=== PATIENT | male | born 1965 | race Hispanic/Latino ===

== ENCOUNTER 2017-01-14 11:02 | Emergency (ER) | payer SELFPAY ==
[2017-01-14 11:02] VITALS: BMI 31.6
[2017-01-14 11:22] VITALS: RESP 16; TEMP 97.7; O2SAT 97
[2017-01-14] MEDS: Albuterol-Ipratrop 3 mg / 0.5 (3 ml) UD IH SCH ×3 (11:30→11:55)
--- NOTE | 2017-01-14 11:30 | ED PDOC ---
Arrival/HPI - General Historian: Patient - History of Present Illness Time/Duration: > week Symptom Onset: Gradual Symptom Course: Worsening Quality: Tightness Context: Work <Medhat Randolph - Last Filed: 01/14/17 13:14> <ArrontonnyJorge Alberto - Last Filed: 01/16/17 18:40> - General Chief Complaint: Shortness Of Breath Time Seen by Provider: 01/14/17 11:10 - History of Present Illness Narrative History of Present Illness (Text): 01/14/17 11:34 51yo M with no significant PMHx here for evaluation of cough, chest pain, shortness of breath. Patient states that he has had cough for 1 week, productive of white phlegm. He states that he had it for a week and thought it was getting better. 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 He came to the ER for further evaluation. He states that the cough is associated with some chest pain located in the left upper chest and radiates to the left neck. He denies any fevers or chills. Does report a co-worker with similar symptoms last week and multiple other co-workers who have similar complaints currently. He does report smoking about a pack a day for the previous 20+ years. Denies any n/v/d. no abd pain. no headaches. No focal deficits. PMHx: Denies PSHx: Left first finger repair, right knee replacement Social Hx: Current pack a day smoker for 20+ years. Occasional ETOH use. Denies any illicit drug use. 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 [employer] (AgustínXochiltMedhat) Past Medical History - Provider Review Nursing Documentation Reviewed: Yes - Past History Past History: No Previous - Tetanus Immunization Tetanus Immunization: Up to Date - Past Medical History Past Medical History: No Previous - Psychiatric Hx Substance Use: No - Past Surgical History Past Surgical History: No Previous - Surgical History Hx Orthopedic Surgery: Yes (right knee replacement) - Suicidal Assessment Feels Threatened In Home Enviroment: No <Medhat Randolph - Last Filed: 01/14/17 13:14> Family/Social History - Physician Review Nursing Documentation Reviewed: Yes Family/Social History: Unknown Family HX Smoking Status: Heavy Smoker > 10 Cigarettes Daily Hx Alcohol Use: Yes Frequency of alcohol use: Socially Hx Substance Use: No Hx Substance Use Treatment: No <Medhat Randolph - Last Filed: 01/14/17 13:14> Allergies/Home Meds <Medhat Randolph - Last Filed: 01/14/17 13:14> <Jorge Alberto Maldonado P - Last Filed: 01/16/17 18:40> Allergies/Adverse Reactions: Allergies No Known Allergies Allergy (Verified 10/21/13 14:19) Review of Systems - Physician Review All systems were reviewed & negative as marked: Yes - Review of Systems Constitutional: absent: Fevers ENT: absent: Rhinorrhea Respiratory: SOB, Cough, Sputum, Wheezing Cardiovascular: Chest Pain. absent: Edema, Calf Pain Gastrointestinal: absent: Abdominal Pain, Diarrhea, Nausea, Vomiting Genitourinary Male: absent: Dysuria, Frequency Musculoskeletal: absent: Back Pain Neurological: Dizziness. absent: Headache Endocrine: Diaphoresis <Medhat Randolph Last Filed: 01/14/17 13:14> Physical Exam Vital Signs Reviewed: Yes Temperature: Afebrile Blood Pressure: Normal Pulse: Regular Respiratory Rate: Normal Appearance: Positive for: Well-Appearing, Non-Toxic Pain Distress: Mild Mental Status: Positive for: Alert and Oriented X 3 - Systems Exam Head: Present: Atraumatic, Normocephalic Extroacular Muscles: Present: EOMI Mouth: Present: Moist Mucous Membranes Respiratory/Chest: Present: Wheezes, Decreased Breath Sounds, Rhonchi. No: Accessory Muscle Use Cardiovascular: Present: Normal S1, S2. No: Murmurs Abdomen: No: Tenderness, Distention, Peritoneal Signs, Rebound, Guarding Back: Present: Normal Inspection Upper Extremity: Present: Normal Inspection. No: Edema Lower Extremity: Present: Normal Inspection. No: Edema, CALF TENDERNESS Neurological: Present: GCS=15 Skin: Present: Warm, Dry, Normal Color Psychiatric: Present: Alert, Oriented x 3 <Medhat Randolph - Last Filed: 01/14/17 13:14> Medical Decision Making <Medhat Randolph - Last Filed: 01/14/17 13:14> <Jorge Alberto Maldonado P - Last Filed: 01/16/17 18:40> ED Course and Treatment: 01/14/17 11:44 51yo M with productive cough, shortness of breath - CXR - EKG - CBC/CMP/Trop - Duonebs x3 - Solumedrol - Reassess and dispo 01/14/17 13:12 - Reexamined the patient. Breath sounds improved. Still some wheezing with deep inspiration. - CXR reviewed with no active disease noted - Urged patient cessation of tobacco use - Patient requests Nicotine patch. Will give one now. Patient to follow up with his primary care physician SHARAD. Patient understands and agrees with plan. ( Medhat Randolph) Patient Seen With Resident: Patient was seen and evaluated with resident. Came up with plan and treatment together. Productive cough, chest pain with cough, wheezes on exam. long smoking hx. will rx as copd exacerbation. (Jorge Alberto Maldonado) - Lab Interpretations Lab Results: 01/14/17 12:03 01/14/17 12:03 Lab Results 01/14/17 12:03: Sodium 140, Potassium 3.4 L, Chloride 102, Carbon Dioxide 29, Anion Gap 12, BUN 13, Creatinine 1.1, Est GFR ( Amer) > 60, Est GFR (Non- Af Amer) > 60, Random Glucose 106, Calcium 9.0, Total Bilirubin 0.4, AST 29, ALT 30, Alkaline Phosphatase 71, Troponin I < 0.01, Total Protein 7.0, Albumin 4.0, Globulin 3.0, Albumin/Globulin Ratio 1.3 01/14/17 12:03: WBC 5.0, RBC 4.65, Hgb 13.7 L, Hct 39.4 L, MCV 84.7, MCH 29.5, MCHC 34.8, RDW 13.2, Plt Count 240, MPV 9.8, Gran % 50.4, Lymph % (Auto) 36.5 H , [place] % (Auto) 4.8, Eos % (Auto) 7.5 H, Baso % (Auto) 0.8, Gran # 2.54, Lymph # 1.8, [place] # 0.2, Eos # 0.4, Baso # 0.04 - RAD Interpretation Radiology Orders: 01/14/17 11:28 CHEST TWO VIEWS (PA/LAT) [RAD] Stat - Medication Orders Current Medication Orders: Discontinued Medications Albuterol/Ipratropium (Duoneb 3 Mg/0.5 Mg (3 Ml) Ud) 3 ml IH Q15M TL Stop: 01/14/17 12:01 Last Admin: 01/14/17 11:55 Dose: 3 ml Methylprednisolone (Solu-Medrol) 125 mg IVP STAT STA Stop: 01/14/17 11:29 Last Admin: 01/14/17 11:44 Dose: 125 mg Nicotine (Nicoderm Cq) 1 patch TD DAILY STA Stop: 01/14/17 13:26 Last Admin: 01/14/17 13:36 Dose: 1 patch - 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 / has examined the patient and agrees with the treatment plan. <Medhat Randolph - Last Filed: 01/14/17 13:14> - Scribe Statement The provider has reviewed the documentation as recorded by the Scribe <Jorge Alberto Maldonado - Last Filed: 01/16/17 18:40> - Scribe Statement Julius Miguel Provider Scribe Attestation: All medical record entries made by the Scribe were at my direction and personally dictated by me. I have reviewed the chart and agree that the record accurately reflects my personal performance of the history, physical exam, medical decision making, and the department course for this patient. I have also personally directed, reviewed, and agree with the discharge instructions and disposition. (Jorge Alberto Maldonado) Disposition/Present on Arrival - Present on Arrival Any Indicators Present on Arrival: No History of DVT/PE: No History of Uncontrolled Diabetes: No Urinary Catheter: No History of Decub. Ulcer: No History Surgical Site Infection Following: None - Disposition Have Diagnosis and Disposition been Completed?: Yes Disposition Time: 13:16 Patient Plan: Discharge <Medhat Randolph - Last Filed: 01/14/17 13:14> <Jorge Alberto Maldonado - Last Filed: 01/16/17 18:40> - Disposition Diagnosis: Cough, Shortness of breath Disposition: HOME/ ROUTINE Condition: GOOD Discharge Instructions (ExitCare): Emphysema (ED), Cold Symptoms (ED) Additional Instructions: 1. Follow up with your Primary Care Physician within 3 days 2. Immediate Smoking cessation 3. Take antibiotics as directed to completion 4. Take Prednisone as directed 5. Use Albuterol inhaler as needed 6. Return to the ER with any concerning symptoms Prescriptions: Albuterol HFA [Ventolin HFA 90 mcg/actuation (8 g)] 1 puff IH Q6H PRN #1 inhaler PRN Reason: Shortness Of Breath Azithromycin [Z-Nicholas] 250 mg PO DAILY #6 tab Prednisone [Deltasone] 40 mg PO DAILY #10 tablet Referrals: Albaro Scruggs DO [Primary Care Provider] - Follow up with primary Forms: [employer] ([place]), WORK NOTE
[2017-01-14 12:09] LABS: BASO # 0.04 K/mm3 (0.0-2.0); BASO % 0.8 % (0.0-3.0); EOS # 0.4 (0.0-0.7); EOS % 7.5 % (1.5-5.0); GRAN # 2.54 (1.4-6.5); GRAN % 50.4 % (50.0-68.0); HEMOGLOBIN 13.7 g/dL (14.0-18.0); LYMPH # 1.8 (1.2-3.4); LYMPH % 36.5 % (22.0-35.0); MEAN CELL VOLUME 84.7 fl (80.0-105.0); MEAN CORPUSCULAR HEMOGLOBIN 29.5 pg (25.0-35.0); MEAN CORPUSCULAR HGB CONC 34.8 g/dl (31.0-37.0); MEAN PLATELET VOLUME 9.8 fl (7.0-11.0); MONO # 0.2 (0.1-0.6); MONO % 4.8 % (1.0-6.0); PLATELET COUNT 240 10^3/uL (120.0-450.0); RBC 4.65 10^6/uL (3.5-6.1); RED CELL DISTRIBUTION WIDTH 13.2 % (11.5-14.5)
[2017-01-14 12:17] LABS: ALB/GLOB RATIO 1.3 (1.1-1.8); ALT/SGPT 30 U/L (7-56); AST/SGOT 29 U/L (15-59); BLOOD UREA NITROGEN 13 mg/dL (7-21); GFR AFRICAN-AMERICAN > 60; GFR NON-AFRICAN AMERICAN > 60
[2017-01-14 12:29] LABS: TROPONIN I < 0.01 ng/mL
--- NOTE | 2017-01-14 12:40 | RAD ---
HISTORY: chest pain COMPARISON: No prior. TECHNIQUE: Chest PA and lateral FINDINGS: LUNGS: No active pulmonary disease. PLEURA: No significant pleural effusion identified. No pneumothorax apparent. CARDIOVASCULAR: Normal. OSSEOUS STRUCTURES: No significant abnormalities. VISUALIZED UPPER ABDOMEN: Normal. OTHER FINDINGS: None. IMPRESSION: No active disease.
[2017-01-14 13:32] VITALS: BP 110/58; PULSE 90
--- NOTE | 2017-01-15 23:59 | CARD ---
APPROVED REPORT EKG Measurement Heart [id number] <Conclusion> Normal sinus rhythm Normal ECG
== END 2017-01-14 13:45 | disposition home or self-care (01) ==
LOC: ED 11:02
DX: R05 Cough (principal); R06.02 Shortness of breath
CPT/HCPCS: 71020; 80053; 84484; 85025; 93005; 96374; 99284; J2930

== ENCOUNTER 2018-08-06 17:51 | Emergency (ER) | payer BC ==
[2018-08-06 17:54] VITALS: BMI 31.4
[2018-08-06 18:25] VITALS: RESP 18; TEMP 98.1
[2018-08-06 18:37] LABS: ALB/GLOB RATIO 1.6 (1.1-1.8); ALBUMIN 4.4 g/dL (3.0-4.8); ALT/SGPT 28 U/L (7-56); AST/SGOT 29 U/L (17-59); BLOOD UREA NITROGEN 13 mg/dL (7-21); CALCIUM 9.2 mg/dL (8.4-10.5); GFR NON-AFRICAN AMERICAN 58
[2018-08-06] MEDS ORDERED: Sodium Chloride 0.9% 1,000 ML IV STA (18:41)
[2018-08-06 18:48] LABS: B-TYPE NATRIURETIC PEPTIDE 34.8 pg/mL (0-450); TROPONIN I < 0.01 ng/mL
--- NOTE | 2018-08-06 18:48 | ED PDOC ---
Arrival/HPI - General Chief Complaint: Chest Pain Time Seen by Provider: 08/06/18 18:09 Historian: Patient - History of Present Illness Narrative History of Present Illness (Text): 08/06/18 18:41 52 year old male, with no significant past medical history, presents to the ED for evaluation of right sided chest pain since today. Patient reports onset of symptoms at work, worsening with movement of right arm and deep inspiration, prompting him to present to the ED for evaluation. Patient denies any other associated somatic complaints. Patient denies any fevers, chills, headache, dizziness, shortness of breath, dyspnea on exertion, cough, abdominal pain, nausea, vomiting, diarrhea, back pain, neck pain, syncope, leg swelling or any other complaints. Patient admits to smoking 2 packs of cigarettes daily. Patient denies any family history of AL age 50 or less. PMD: Dr. Scruggs Time/Duration: Prior to Arrival Symptom Onset: Gradual Symptom Course: Unchanged Activities at Onset: Light Context: Home Past Medical History - Provider Review Nursing Documentation Reviewed: Yes - Past History Past History: No Previous - Infectious Disease Hx of Infectious Diseases: None - Tetanus Immunization Tetanus Immunization: Up to Date - Past Medical History Past Medical History: No Previous - Psychiatric Hx Depression: No Hx Emotional Abuse: No Hx Physical Abuse: No Hx Substance Use: No - Past Surgical History Past Surgical History: No Previous - Surgical History Hx Orthopedic Surgery: Yes (right knee replacement) - Anesthesia Hx Anesthesia: Yes Hx Anesthesia Reactions: No Hx Malignant Hyperthermia: No - Suicidal Assessment Feels Threatened In Home Enviroment: No Family/Social History - Physician Review Nursing Documentation Reviewed: Yes Family/Social History: Unknown Family HX Smoking Status: Heavy Smoker > 10 Cigarettes Daily Hx Alcohol Use: Yes Hx Substance Use: No Hx Substance Use Treatment: No Allergies/Home Meds Allergies/Adverse Reactions: Allergies No Known Allergies Allergy (Verified 08/06/18 18:00) Home Medications: Home Meds Medication Instructions Recorded Confirmed No Known Home Med 08/06/18 08/06/18 Review of Systems - Physician Review All systems were reviewed & negative as marked: Yes - Review of Systems Constitutional: absent: Fevers Respiratory: absent: SOB, Cough Cardiovascular: Chest Pain Gastrointestinal: absent: Abdominal Pain, Diarrhea, Nausea, Vomiting Genitourinary Male: absent: Dysuria, Urinary Output Changes Musculoskeletal: absent: Back Pain, Neck Pain Skin: absent: Rash Neurological: absent: Headache, Dizziness Psychiatric: absent: Anxiety Physical Exam Vital Signs Reviewed: Yes Vital Signs Temp Pulse Resp BP Pulse Ox 08/06/18 18:15 98.1 F 78 18 124/76 95 Temperature: Afebrile Blood Pressure: Normal Pulse: Regular Respiratory Rate: Normal Appearance: Positive for: Well-Appearing, Non-Toxic, Comfortable Pain Distress: None Mental Status: Positive for: Alert and Oriented X 3 - Systems Exam Head: Present: Atraumatic, Normocephalic Pupils: Present: PERRL Extroacular Muscles: Present: EOMI Conjunctiva: Present: Normal Mouth: Present: Moist Mucous Membranes Neck: Present: Normal Range of Motion Respiratory/Chest: Present: Clear to Auscultation, Good Air Exchange, Tender to Palpation (to right anterior chest wall). No: Respiratory Distress, Accessory Muscle Use Cardiovascular: Present: Regular Rate and Rhythm, Normal S1, S2. No: Murmurs Abdomen: No: Tenderness, Distention, Peritoneal Signs Back: Present: Normal Inspection Upper Extremity: Present: Normal Inspection. No: Cyanosis, Edema Lower Extremity: Present: Normal Inspection. No: Edema Neurological: Present: GCS=15, CN II-XII Intact, Speech Normal Skin: Present: Warm, Dry, Normal Color. No: Rashes Psychiatric: Present: Alert, Oriented x 3, Normal Insight, Normal Concentration Medical Decision Making ED Course and Treatment: 08/06/18 18:45 Impression: 52 year old male presents to the ED for evaluation of chest pain. HEART Score: 2(Low risk) Differential Diagnosis included but are not limited to: -- Musculoskeletal pain -- Costrochondritis --ACS Plan: -- EKG -- Labs -- CXR -- IV fluids -- Toradol -- Urinalysis -- Reassess and disposition Prior Visits: Notes and results from previous visits were reviewed. Progress Notes: 08/06/18 19:47 Labs reviewed with negative troponin, BNP and D-dimer. CXR shows no evidence of cardiomegaly, widened mediastinum or PTX. Patient updated on results and and would like to discuss with his if he would like to stay in the hospital for observation. 08/06/18 20:07 Patient reevaluated and desires to follow up with a commercial lease administrator outpatient. He requests for a commercial lease administrator to be provided. Cardiology follow up provided with oppertunity for questions given and answered. Return protocol given. Patient stable for discharge. - Lab Interpretations Lab Results: Total Bilirubin 0.3 mg/dL (0.2-1.3) 08/06/18 18:21 AST 29 U/L (17-59) 08/06/18 18:21 ALT 28 U/L (7-56) 08/06/18 18:21 Alkaline Phosphatase 68 U/L (38-126) 08/06/18 18:21 Total Protein 7.1 g/dL (5.8-8.3) 08/06/18 18:21 Albumin 4.4 g/dL (3.0-4.8) 08/06/18 18:21 Globulin 2.8 gm/dL 08/06/18 18:21 Albumin/Globulin Ratio 1.6 (1.1-1.8) 08/06/18 18:21 08/06/18 18:21 08/06/18 18:21 Lab Results 08/06/18 18:21: Sodium 138, Potassium 4.2, Chloride 103, Carbon Dioxide 26, Anion Gap 13, BUN 13, Creatinine 1.3, Est GFR ( Amer) > 60, Est GFR (Non- Af Amer) 58, Random Glucose 104, Calcium 9.2, Magnesium 1.8, Total Bilirubin 0.3, AST 29, ALT 28, Alkaline Phosphatase 68, Troponin I < 0.01, NT-Pro-B Natriuret Pep 34.8, Total Protein 7.1, Albumin 4.4, Globulin 2.8, Albumin/Globulin Ratio 1.6 08/06/18 18:21: WBC 6.4, RBC 4.68, Hgb 13.9 L, Hct 41.3 L, MCV 88.2 D, MCH 29.7, MCHC 33.7, RDW 13.5, Plt Count 283, MPV 10.2, Neut % (Auto) 47.0 L, Lymph % (Auto) 42.4 H, [place] % (Auto) 5.6, Eos % (Auto) 4.2, Baso % (Auto) 0.8, Lymph # (Auto) 2.7, [place] # (Auto) 0.4, Eos # (Auto) 0.3, Baso # (Auto) 0.05, Absolute Neuts (auto) 3.03 I have reviewed the lab results: Yes - EKG Interpretation EKG Interpretation (Text): 08/06/18 18:53 EKG reviewed, shows NSR@ 81bpm, no ST elevations, peaked T waves. Interpreted by ED Physician: Yes Type: 12 lead EKG - Medication Orders Current Medication Orders: Sodium Chloride (Sodium Chloride 0.9%) 1,000 mls @ 999 mls/hr IV .Q1H1M STA Stop: 08/06/18 19:41 Discontinued Medications Ketorolac Tromethamine (Toradol) 30 mg IVP STAT STA Stop: 08/06/18 18:40 - Scribe Statement The provider has reviewed the documentation as recorded by the Scribe Yaa Fuchs. All medical record entries made by the Scribe were at my direction and perso frantz dictated by me. I have reviewed the chart and agree that the record accurately reflects my personal performance of the history, physical exam, medical decision making, and the department course for this patient. I have also personally directed, reviewed, and agree with the discharge instructions and disposition. Disposition/Present on Arrival - Present on Arrival Any Indicators Present on Arrival: No History of DVT/PE: No History of Uncontrolled Diabetes: No Urinary Catheter: No History of Decub. Ulcer: No History Surgical Site Infection Following: None - Disposition Have Diagnosis and Disposition been Completed?: Yes Diagnosis: Chest pain Disposition: HOME/ ROUTINE Disposition Time: 20:09 Patient Plan: Discharge Condition: IMPROVED Discharge Instructions (ExitCare): Chest Pain (ED) Print Language: PALAUAN Additional Instructions: All medical record entries made by the Scribe were at my direction and personally dictated by me. I have reviewed the chart and agree that the record accurately reflects my personal performance of the history, physical exam, medical decision making, and the department course for this patient. I have also personally directed, reviewed, and agree with the discharge instructions and disposition. Please schedule an appointment with the commercial lease administrator SHARAD Referrals: Albaro Scruggs DO [Primary Care Provider] - Follow up with primary Negar López MD [Staff Provider] - Follow up with primary Alvarado Puri MD [Staff Provider] - Follow up with primary Forms: [employer] ([place]), WORK NOTE
[2018-08-06 19:14] LABS: BASO # 0.05 K/mm3 (0.0-2.0); BASO % 0.8 % (0.0-3.0); EOS # 0.3 (0.0-0.7); EOS % 4.2 % (1.5-5.0); HEMOGLOBIN 13.9 g/dL (14.0-18.0); LYMPH # 2.7 (1.2-3.4); LYMPH % 42.4 % (22.0-35.0); MEAN CELL VOLUME 88.2 fl (80.0-105.0); MEAN CORPUSCULAR HEMOGLOBIN 29.7 pg (25.0-35.0); MEAN CORPUSCULAR HGB CONC 33.7 g/dl (31.0-37.0); MEAN PLATELET VOLUME 10.2 fl (7.0-11.0); MONO # 0.4 (0.1-0.6); MONO % 5.6 % (1.0-6.0); RBC 4.68 10^6/uL (3.5-6.1); RED CELL DISTRIBUTION WIDTH 13.5 % (11.5-14.5); WHITE BLOOD COUNT 6.4 10^3/uL (4.5-11.0)
[2018-08-06 19:52] LABS: INR 1.09; PARTIAL THROMBOPLASTIN TIME 42.3 Seconds (26.9-38.3); PROTHROMBIN TIME 12.1 SECONDS (9.4-12.5)
[2018-08-06 20:35] VITALS: BP 119/61; PULSE 77; O2SAT 98
--- NOTE | 2018-08-07 09:03 | RAD ---
Date of service: 08/06/2018 HISTORY: chest pain COMPARISON: 01/14/2017 FINDINGS: LUNGS: No active pulmonary disease. PLEURA: No significant pleural effusion identified, no pneumothorax apparent. CARDIOVASCULAR: No aortic atherosclerotic calcification present. Normal cardiac size. No pulmonary vascular congestion. OSSEOUS STRUCTURES: No significant abnormalities. VISUALIZED UPPER ABDOMEN: Normal. OTHER FINDINGS: None. IMPRESSION: No active disease.
--- NOTE | 2018-08-07 09:20 | CARD ---
APPROVED REPORT Date of service: 08/06/2018 EKG Measurement Heart [id number] <Conclusion> Normal sinus rhythm Normal ECG
== END 2018-08-06 20:10 | disposition home or self-care (01) ==
LOC: ED 17:51
DX: R07.9 Chest pain, unspecified (principal); F17.210 Nicotine dependence, cigarettes, uncomplicated
CPT/HCPCS: 71045; 80053; 83735; 83880; 84484; 85025; 85378; 85610; 85730; 93005; 96374; 99284; J1885; J7030